=== PATIENT | female | born 1940 | race Caucasian/White ===

== ENCOUNTER 2024-01-07 15:44 | Emergency (ER) | payer MEDICARE, OTHER | END 2024-01-07 18:38 | LOC: NAV ERS 15:44 | DX: S51.811A Laceration without foreign body of right forearm, initial encounter (principal); S00.93XA Contusion of unspecified part of head, initial encounter; S80.02XA Contusion of left knee, initial encounter; S80.01XA Contusion of right knee, initial encounter; I10 Essential (primary) hypertension; I48.91 Unspecified atrial fibrillation; E11.9 Type 2 diabetes mellitus without complications; W01.198A Fall on same level from slipping, tripping and stumbling with subsequent striking against other object, initial encounter; Z87.891 Personal history of nicotine dependence; Z79.899 Other long term (current) drug therapy | CPT/HCPCS: 70450; 72125 ==

== ENCOUNTER 2024-02-16 15:31 | Emergency (ER) | payer MEDICARE, OTHER ==
[2024-02-16] MEDS ORDERED: Ondansetron ODT 4 MG TAB ONE (16:12)
[2024-02-16] MEDS ORDERED: HYDROcodone/Acetaminophen 5/325 mg Tablet ONE (16:12)
== END 2024-02-16 17:19 ==
LOC: NAV ERS 15:31
DX: S00.83XA Contusion of other part of head, initial encounter (principal); E11.9 Type 2 diabetes mellitus without complications; Z87.891 Personal history of nicotine dependence; Z79.899 Other long term (current) drug therapy; Z79.84 Long term (current) use of oral hypoglycemic drugs; W07.XXXA Fall from chair, initial encounter
CPT/HCPCS: 70450; 72125; Q0162

== ENCOUNTER 2024-03-19 20:15 | Emergency (ER) | payer MEDICARE, OTHER ==
[2024-03-19] MEDS ORDERED: Lidocaine 1% (PF) 30 ML VIAL ONE (21:02)
[2024-03-19] MEDS ORDERED: Boostrix 0.5 ML (Tdap) VIAL (>/=7 yrs of age) ONE (22:34)
== END 2024-03-20 00:16 ==
LOC: NAV ERS 20:15
DX: S09.90XA Unspecified injury of head, initial encounter (principal); S01.81XA Laceration without foreign body of other part of head, initial encounter; I48.91 Unspecified atrial fibrillation; E11.9 Type 2 diabetes mellitus without complications; I10 Essential (primary) hypertension; V00.811A Fall from moving wheelchair (powered), initial encounter; Z23 Encounter for immunization; Z87.891 Personal history of nicotine dependence; Z79.84 Long term (current) use of oral hypoglycemic drugs; Z79.899 Other long term (current) drug therapy
CPT/HCPCS: 12013; 70450; 72125; 90471; 90715; 99283; J2001

== ENCOUNTER 2025-07-29 04:37 | Emergency (ER) | payer MEDICARE | END 2025-07-29 07:38 | LOC: NAV ERS 04:37 | DX: M79.605 Pain in left leg (principal); I10 Essential (primary) hypertension; G93.89 Other specified disorders of brain; E11.9 Type 2 diabetes mellitus without complications; W18.30XA Fall on same level, unspecified, initial encounter; Z79.84 Long term (current) use of oral hypoglycemic drugs; Z79.899 Other long term (current) drug therapy | CPT/HCPCS: 70450; 71045; 72125; 72170 ==